=== PATIENT | male | born 1945 ===

== ENCOUNTER 2019-09-02 15:29 | Emergency (ER) | payer SELFPAY ==
--- NOTE | 2019-09-02 15:40 | EDM.PDOC ---
ED HPI GENERAL MEDICAL PROBLEM - General Chief Complaint: Respiratory Problem Stated Complaint: CANT BREATHE AND HASNT EATEN OR DRANK Time Seen by Provider: 09/02/19 15:40 Source of Information: Reports: Patient, Family (), Old Records, RN History Limitations: Reports: No Limitations - History of Present Illness INITIAL COMMENTS - FREE TEXT/NARRATIVE: Pt arrives to ER from home by POV with c/o severe shortness of breath, and confusion. Pt's reports the pt was diagnosed with a tumor in his right lung in or [address] scan at [facility]. He was unable to tolerate a PET scan and MRI because he couldn't lay flat. He had a bronchoscopy , but states that something went wrong with the bronchoscopy, and since the procedure he has been confused, and severely short of breath. She also states the pt has not eaten any solid food for at least 3 days, and she can only get him to sip a little water each day. The pt and his are very frustrated, and feel that no one has explained enough about his condition, diagnosis, or what to do next, so they have just been at home waiting to see what to do next. Denies fevers, N/V, wheezing, or abdominal pain. 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 - Related Data Allergies Allergy/AdvReac Type Severity Reaction Status Date / Time No Known Allergies Allergy Verified 09/02/19 15:40 Past Medical History Oncologic (Cancer) History: Reports: Lung Social & Family History - Family History Family Medical History: Unobtainable - Tobacco Use Smoking Status *Q: Former Smoker Tobacco Use Within Last Twelve Months: Cigarettes Used Tobacco, but Quit: Yes Month/Year Tobacco Last Used: 1993 - Living Situation & Occupation Living situation: Reports: , with Spouse Occupation: Retired ED ROS GENERAL - Review of Systems Review Of Systems: ROS reveals no pertinent complaints other than HPI. ED EXAM, GENERAL - Physical Exam Exam: See Below Exam Limited By: No Limitations General Appearance: Alert, Mild Distress, Other (Chronically ill appearing, poor hygiene, malodorous) Eye Exam: Bilateral Eye: Normal Inspection Ears: Normal External Exam, Hearing Grossly Normal Nose: Normal Inspection, Normal Mucosa, No Blood Throat/Mouth: Normal Lips, Normal Voice, No Airway Compromise, Other (Dry oral mucosa) Head: Atraumatic, Normocephalic Neck: Normal Inspection, Supple, Non-Tender, Full Range of Motion Respiratory/Chest: Other (abscent breath sounds on Rt. Coarse breath sounds with rhonchi at left base.) Cardiovascular: Regular Rate, Rhythm, Tachycardia, Other (+2 edema to knees) GI/Abdominal: Normal Bowel Sounds, Soft, Non-Tender, No Distention Extremities: Non-Tender, Normal Capillary Refill, Pedal Edema. No: Mottled, Pallor, Redness Neurological: Alert, Oriented (to person and place only), Confused Psychiatric: Anxious, Depressed Mood, Flat Affect Skin Exam: Warm, Dry, Other (chronic appearing decubitus ulcer on buttock/ sacral area) EKG INTERPRETATION EKG Date: 09/02/19 Time: 15:39 Rhythm: Other (SR) Rate (Beats/Min): 124 Ocate: RAD-Right Ocate Deviation P-Wave: Present QRS: Normal ST-T: Other (Prob. repol. abnl.) QT: Normal Comparison: NA - No Prior EKG Course - Vital Signs Last Recorded V/S: Last Vital Signs Temp 97 F 09/02/19 15:40 Pulse 124 H 09/02/19 15:40 Resp 28 H 09/02/19 15:40 BP 121/72 09/02/19 15:40 Pulse Ox 86 L 09/02/19 15:40 - Orders/Labs/Meds Orders: Active Orders 24 hr Category Date Time Status Blood Glucose Check, Bedside [RC] ONETIME Care 09/02/19 15:41 Active EKG 12 Lead [EKG Documentation Completion] [RC] STAT Care 09/02/19 15:40 Active Peripheral IV Care [RC] . DIRECTED Care 09/02/19 15:41 Active RT Aerosol Therapy [RC] ASDIRECTED Care 09/02/19 16:22 Active Chest 1V Frontal [CR] Stat Exams 09/02/19 15:40 Taken CULTURE BLOOD [BC] Stat Lab 09/02/19 16:10 Results CULTURE BLOOD [BC] Stat Lab 09/02/19 16:35 Results MAGNESIUM [CHEM] Stat Lab 09/02/19 17:19 Ordered UA RFX RICK AND CULT IF INDIC [URIN] Stat Lab 09/02/19 15:41 Ordered Sodium Chloride 0.9% [Saline Flush] Med 09/02/19 15:41 Active 10 ml FLUSH ASDIRECTED PRN Blood Culture x2 Reflex Set [OM.PC] Stat Oth 09/02/19 15:41 Ordered Peripheral IV Insertion Adult [OM.PC] Stat Oth 09/02/19 15:40 Ordered Medication Orders Sodium Chloride (Saline Flush) 10 ml FLUSH ASDIRECTED PRN PRN Reason: Keep Vein Open Last Admin: 09/02/19 16:36 Dose: 10 ml Labs: Laboratory Tests 09/02/19 09/02/19 09/02/19 Range/Units 16:23 16:35 16:35 WBC 16.6 H (5.0-10.0) 10^3/uL RBC 4.97 (4.6-6.2) 10^6/uL Hgb 13.6 L (14.0-18.0) g/dL Hct 43.2 (40.0-54.0) % MCV 86.9 (80-100) fL MCH 27.4 (27.0-34.0) pg MCHC 31.5 L (33.0-35.0) g/dL Plt Count 333 (150-450) 10^3/uL Neut % (Auto) 84.6 H (42.2-75.2) % Lymph % (Auto) 5.5 L (20.5-50.1) % [place] % (Auto) 9.7 H (2-8) % Eos % (Auto) 0.1 L (1.0-3.0) % Baso % (Auto) 0.1 (0.0-1.0) % PT 14.0 H (9.0-12.0) SEC INR 1.4 H (0.9-1.2) APTT 25.6 (22.0-34.0) SEC Sodium (135-145) mmol/L Potassium (3.6-5.0) mmol/L Chloride (101-111) mmol/L Carbon Dioxide (21.0-31.0) mmol/L Anion Gap BUN (7-18) mg/dL Creatinine (0.6-1.3) mg/dL Est Cr Clr Drug Dosing Estimated GFR (MDRD) BUN/Creatinine Ratio Glucose (74-105) mg/dL POC Glucose 138 H (83-110) mg/dl Lactic Acid (0.5-2.2) mmol/L Calcium (8.4-10.2) mg/dl Total Bilirubin (0.2-1.0) mg/dL AST (10-42) IU/L ALT (10-60) IU/L Alkaline Phosphatase (42-121) IU/L Lactate Dehydrogenase (91-180) IU/L Troponin I (0.00-0.02) ng/ml B-Natriuretic Peptide (0-100) pg/ml Total Protein (6.7-8.2) g/dl Albumin (3.2-5.5) g/dl Globulin Albumin/Globulin Ratio 09/02/19 09/02/19 Range/Units 16:35 16:35 WBC (5.0-10.0) 10^3/uL RBC (4.6-6.2) 10^6/uL Hgb (14.0-18.0) g/dL Hct (40.0-54.0) % MCV (80-100) fL MCH (27.0-34.0) pg MCHC (33.0-35.0) g/dL Plt Count (150-450) 10^3/uL Neut % (Auto) (42.2-75.2) % Lymph % (Auto) (20.5-50.1) % [place] % (Auto) (2-8) % Eos % (Auto) (1.0-3.0) % Baso % (Auto) (0.0-1.0) % PT (9.0-12.0) SEC INR (0.9-1.2) APTT (22.0-34.0) SEC Sodium 136 (135-145) mmol/L Potassium 3.8 (3.6-5.0) mmol/L Chloride 92 L (101-111) mmol/L Carbon Dioxide 31.0 (21.0-31.0) mmol/L Anion Gap 16.8 BUN 15 (7-18) mg/dL Creatinine 0.8 (0.6-1.3) mg/dL Est Cr Clr Drug Dosing TNP Estimated GFR (MDRD) > 60 BUN/Creatinine Ratio 18.75 Glucose 137 H (74-105) mg/dL POC Glucose (83-110) mg/dl Lactic Acid 1.7 (0.5-2.2) mmol/L Calcium 8.5 (8.4-10.2) mg/dl Total Bilirubin 0.9 (0.2-1.0) mg/dL AST 25 (10-42) IU/L ALT 18 (10-60) IU/L Alkaline Phosphatase 79 (42-121) IU/L Lactate Dehydrogenase 161 (91-180) IU/L Troponin I 0.36 H* (0.00-0.02) ng/ml B-Natriuretic Peptide 690 H (0-100) pg/ml Total Protein 6.8 (6.7-8.2) g/dl Albumin 3.1 L (3.2-5.5) g/dl Globulin 3.7 Albumin/Globulin Ratio 0.84 Meds: Medications Generic Name Dose Route Start Last Admin Trade Name Freq PRN Reason Stop Dose Admin Sodium Chloride 10 ml 09/02/19 15:41 09/02/19 16:36 Saline Flush FLUSH 10 ml ASDIRECTED PRN Administration Keep Vein Open Discontinued Medications Generic Name Dose Route Start Last Admin Trade Name Freq PRN Reason Stop Dose Admin Albuterol/Ipratropium 3 ml 09/02/19 16:22 09/02/19 16:31 Duoneb 3.0-0.5 Mg/3 Ml NEB 09/02/19 16:23 3 ml ONETIME ONE Administration Piperacillin Sod/Tazobactam 100 mls @ 200 mls/hr 09/02/19 16:22 09/02/19 16: 40 Sod 3.375 gm/ Sodium Chloride IV 09/02/19 16:51 200 mls/hr ONETIME ONE Administration - Radiology Interpretation Free Text/Narrative:: [facility] [place] [facility] Final Radiology Report Call: [phone] assistance Online chat: [email or web address] Name: OZ RODRIGUEZ Age: 73Years M Date: 09/02/2019 SSN: -- : [id number] Study: XR CHEST 1 VIEW FRONTAL Requesting Physician: RENEA ESPINOZA Images: 1 Addl Studies: Provided Clinical History: Contrast: Contrast Medium: Contrast Amount: Contrast Method: CONFIDENTIALITY STATEMENT This report is intended only for use by the referring physician, and only in accordance with law. If you received this in error, call [phone]. Page 1 of 1 PROCEDURE INFORMATION: Exam: XR Chest, 1 View Exam date and time: 09/02/2019 3:53 PM Clinical history: 73 years old, male; Dyspnea and other: Hypoxia--hx lung CA TECHNIQUE: Imaging protocol: XR of the chest Views: 1 view. COMPARISON: No relevant prior studies available. FINDINGS: Lungs: There is extensive opacity in the right hemithorax most pronounced in the mid to upper lobe. The right lung apex is relatively spared. There is mild indistinctness in the left lung base suggesting focal atelectasis or infiltrate. Pleural space: There is a small right pleural fluid collection present. Heart/Mediastinum: The heart is not enlarged. Bones/joints: Unremarkable IMPRESSION: Extensive opacity in the right lung and mild opacity in the left base. Thank you for allowing us to participate in the care of your patient. Dictated and Authenticated by: Jerrod Perla MD 09/02/2019 4:04 PM Central Time ([place] & [place]) - Re-Assessments/Exams Free Text/Narrative Re-Assessment/Exam: 09/02/19 17:24 Transfer initiated prior to completion of diagnostic results due to the pt's serious condition and the transportation limits caused by severe winter weather. No airlift by rotor or fixed wing is available until further notice. The roads have been closed and impassable for >24 hours and have just now reopened, but with more snow and freezing temperatures may close again at any time. Departure - Departure Time of Disposition: 17:21 Disposition: DC/Tfer to Acute Hospital 02 Condition: Serious, Critical Clinical Impression: Obstructive pneumonia, Elevated troponin Malignant neoplasm of right lung Qualifiers: Lung location: unspecified part of lung Qualified Code(s): C34.91 - Malignant neoplasm of unspecified part of right bronchus or lung Acute on chronic respiratory failure Qualifiers: Respiratory failure complication: hypoxia Qualified Code(s): J96.21 - Acute and chronic respiratory failure with hypoxia Decubitus ulcer of buttock Qualifiers: Pressure injury stage: unstageable Laterality: unspecified laterality Qualified Code(s): L89.300 - Pressure ulcer of unspecified buttock, unstageable - Discharge Information *PRESCRIPTION DRUG MONITORING PROGRAM REVIEWED*: No *COPY OF PRESCRIPTION DRUG MONITORING REPORT IN PATIENT FOREST: No Forms: ED Department Discharge, Interfacility Transfer EMTALA - My Orders Last 24 Hours: My Active Orders 09/02/19 15:40 EKG 12 Lead [EKG Documentation Completion] [RC] STAT Chest 1V Frontal [CR] Stat Peripheral IV Insertion Adult [OM.PC] Stat 09/02/19 15:41 Blood Glucose Check, Bedside [RC] ONETIME Peripheral IV Care [RC] . DIRECTED UA RFX RICK AND CULT IF INDIC [URIN] Stat Sodium Chloride 0.9% [Saline Flush] 10 ml FLUSH ASDIRECTED PRN Blood Culture x2 Reflex Set [OM.PC] Stat 09/02/19 16:10 CULTURE BLOOD [BC] Stat 09/02/19 16:22 RT Aerosol Therapy [RC] ASDIRECTED 09/02/19 16:35 CULTURE BLOOD [BC] Stat 09/02/19 17:19 MAGNESIUM [CHEM] Stat - Assessment/Plan Last 24 Hours: My Active Orders 09/02/19 15:40 EKG 12 Lead [EKG Documentation Completion] [RC] STAT Chest 1V Frontal [CR] Stat Peripheral IV Insertion Adult [OM.PC] Stat 09/02/19 15:41 Blood Glucose Check, Bedside [RC] ONETIME Peripheral IV Care [RC] . DIRECTED UA RFX RICK AND CULT IF INDIC [URIN] Stat Sodium Chloride 0.9% [Saline Flush] 10 ml FLUSH ASDIRECTED PRN Blood Culture x2 Reflex Set [OM.PC] Stat 09/02/19 16:10 CULTURE BLOOD [BC] Stat 09/02/19 16:22 RT Aerosol Therapy [RC] ASDIRECTED 09/02/19 16:35 CULTURE BLOOD [BC] Stat 09/02/19 17:19 MAGNESIUM [CHEM] Stat
[2019-09-02] MEDS ORDERED: Sodium Chloride 0.9% 10 ML Syringe FLUSH PRN (15:41)
[2019-09-02] MEDS ORDERED: Piperacillin/Tazobactam 3.375 GM in Sodium Chloride 0.9% 100 ML IV ONE (16:22)
[2019-09-02] MEDS ORDERED: Albuterol/Ipratropium 3.0-0.5 MG/3 ML Neb Soln NEB ONE (16:22)
[2019-09-02 17:01] LABS: ANION GAP 16.8; CHLORIDE,CL 92 mmol/L (101-111); SODIUM,NA 136 mmol/L (135-145)
== END 2019-09-02 17:55 ==
LOC: DL.ED 15:29
DX: C34.91 Malignant neoplasm of unspecified part of right bronchus or lung (principal); J18.9 Pneumonia, unspecified organism; R79.89 Other specified abnormal findings of blood chemistry; J96.21 Acute and chronic respiratory failure with hypoxia; L89.300 Pressure ulcer of unspecified buttock, unstageable; L89.159 Pressure ulcer of sacral region, unspecified stage; Z87.891 Personal history of nicotine dependence
CPT/HCPCS: 36415; 71045; 80053; 82962; 83605; 83615; 83735; 83880; 84484; 85025; 85610; 85730; 87040; 93005; 96365; 99285; J2543; J7050; J7620-GY